=== PATIENT | female | born 1965 | race African-American/Black ===

== ENCOUNTER 2023-05-19 04:09 | Inpatient (IN) | payer SELFPAY ==
[2023-05-19] MEDS ORDERED: Sodium Chloride 0.9% 1,000 ML IV SCH ×2 (05:45→06:00)
[2023-05-19] MEDS ORDERED: Ondansetron ODT 4 MG TAB SL PRN (05:45)
[2023-05-19] MEDS ORDERED: Ondansetron PF 4 MG/2 ML Vial IVP PRN (05:45)
[2023-05-19] MEDS ORDERED: Acetaminophen 650 MG Suppository PR PRN (05:56)
[2023-05-19] MEDS ORDERED: Acetaminophen 325 MG TAB PO PRN (05:56)
[2023-05-19 08:03] LABS: ALT (SGPT) 31 U/L (8-55); AST (SGOT) 93 U/L (5-34); Albumin 4.1 g/dL (3.5-5.0); Alkaline Phosphatase 99 U/L (40-110); Anion Gap 28 mmol/L (10-20); BUN (Urea Nitrogen) 20 mg/dL (9.8-20.1); Bilirubin, Total 1.2 mg/dL (0.2-1.2); Calc. Creatinine Clearance 0 mL/min (70-130); Calcium 8.4 mg/dL (7.8-10.44); Carbon Dioxide 14 mmol/L (22-29); Chloride 103 mmol/L (98-107); Estimated GFR 47; Glucose 73 mg/dL (70-105); Potassium 4.2 mmol/L (3.5-5.1); Protein, Total 8.1 g/dL (6.0-8.3); Sodium 141 mmol/L (136-145)
[2023-05-19] MEDS: Dextrose 5 %-0.45 % NaCl 1,000 ML IV SCH ×2 (10:34→20:00)
[2023-05-19 10:57] VITALS: BMI 25.8
[2023-05-19 11:23] LABS: Iron 92 ug/dL (50-170); Iron Binding Capacity, Total 201 mcg/dL (265-497)
[2023-05-19 12:27] LABS: SARS-CoV-2 NAA Rapid Test Not Detected (NotDetected)
[2023-05-19] MEDS ORDERED: Loperamide HCl 2 MG CAP PO PRN (17:55)
[2023-05-19] MEDS: Pantoprazole 40 MG VIAL IVP SCH (21:23)
[2023-05-19 22:26] LABS: Campy jejuni + coli by PCR Negative (Negative); STEC Shiga Toxin 1+2 Negative (Negative); Salmonella spp. by PCR Negative (Negative); Shigella spp + EIEC by PCR Negative (Negative)
[2023-05-20] MEDS: Dextrose 5 %-0.45 % NaCl 1,000 ML IV SCH ×2 (04:21→13:48)
[2023-05-20] MEDS: Pantoprazole 40 MG VIAL IVP SCH (08:23)
[2023-05-20 09:10] LABS: #Eosinphils 0.1 thou/uL (0.0-0.7); #Monocytes 0.5 thou/uL (0.11-0.59); #Neutrophils 2.4 thou/uL (1.40-6.50); %Basophils 0.4 % (0.0-1.0); %Eosinophils 2.4 % (0.0-10.0); %Lymphocytes 33.5 % (21.0-51.0); %Monocytes 10.9 % (0.0-10.0); %Neutrophils 52.4 % (42.0-75.0); Hematocrit 29.4 % (36.0-47.0); Hemoglobin 9.8 g/dL (12.0-16.0); Mean Corpuscular HGB CONC 33.3 g/dL (32.0-36.0); Mean Corpuscular Hemoglobin 29.4 pg (27.0-31.0); Mean Corpuscular Volume 88.3 fl (78.0-98.0); Mean Platelet Volume 10.7 fL (7.4-10.4); Red Blood Cell (RBC) Count 3.33 mill/uL (4.20-5.40); White Blood Cell (WBC) Count 4.6 10x3/uL (4.8-10.8)
[2023-05-20 09:22] LABS: Platelet Count 85 10x3/uL (130-400)
[2023-05-20 09:53] LABS: Anion Gap 13 mmol/L (10-20); BUN (Urea Nitrogen) 10 mg/dL (9.8-20.1); Calc. Creatinine Clearance 78 mL/min (70-130); Calcium 8.5 mg/dL (7.8-10.44); Carbon Dioxide 22 mmol/L (22-29); Chloride 102 mmol/L (98-107); Estimated GFR 75; Glucose 141 mg/dL (70-105); Potassium 3.4 mmol/L (3.5-5.1); Sodium 134 mmol/L (136-145)
[2023-05-20 11:33] VITALS: BP 155/88; TEMP 98.5
[2023-05-20 11:52] LABS: Hematocrit 32.1 % (36.0-47.0); Hemoglobin 10.5 g/dL (12.0-16.0)
== END 2023-05-20 15:22 | disposition home or self-care (01) | DRG 392 ==
LOC: T4-B 05:24 → OBSVTOIN 05-20 11:16
PROVIDERS: ADMIT Student in an Organized Health Care Education/Training Program; ATTEND Emergency Medicine
DX: A08.4 Viral intestinal infection, unspecified (principal); N17.9 Acute kidney failure, unspecified; E86.0 Dehydration; E83.42 Hypomagnesemia; E16.2 Hypoglycemia, unspecified; Z98.51 Tubal ligation status; I10 Essential (primary) hypertension; M10.9 Gout, unspecified; D63.8 Anemia in other chronic diseases classified elsewhere; Z20.822 Contact with and (suspected) exposure to COVID-19
CPT/HCPCS: 36415; 36416; 80048; 82728; 83540; 83550; 83605; 85025; 85046; 87324; 87449; 87505; 96374; 96375; 96376; C9113; G0378; J2405; J7042; J7050